=== PATIENT | female | born 1960 | race African-American/Black ===

== ENCOUNTER → 2021-05-10 | Outpatient (CLI) | payer OTHER, BC ==
[2015-05-11 22:10] VITALS: BP 151/81
[~2021-05-10] MED LIST: BACL10TA PO; LEVO50TA5 PO; LEVO5TAB29 PO; MODA100T2 PO; OMEP40CA7 PO; TOPI25TA7 PO; TRAM50TA PO; TRAZ-118 PO; ZOLP10TA4 PO
--- NOTE | 2021-05-16 08:51 | RAD ---
EXAM: Bilateral digital screening mammogram with tomosynthesis. HISTORY: 61-year-old female presents for screening mammography. TECHNIQUE: Full-field digital craniocaudal and mediolateral oblique 2D and 3D tomosynthesis images of both breasts are obtained for evaluation. Computer aided detection was applied. COMPARISON: 05/20/2020 BREAST PARENCHYMAL DENSITY: Level C - Heterogeneously dense. FINDINGS: There is nodularity within the 4:00 position of the right breast at mid to posterior depth centered approximately 6.5 cm from the nipple in the craniocaudal projection. This is more conspicuou s compared to the prior study. There are additional areas of asymmetry and nodularity which are stabl e in appearance. There is no suspicious calcification or architectural distortion. IMPRESSION: BI-RADS Category 0: Incomplete. Additional imaging needed. RECOMMENDATION: Further evaluation with a spot compression craniocaudal view of the right breast and true lateral view the right breast to assess nodularity at the 4:00 position at mid to posterior dept h is recommended. Sonographic imaging can also be performed if deemed indicated based on additional m ammographic findings. If your mammogram demonstrates that you have dense breast tissue, which could hide abnormalities, and if you have other risk factors for breast cancer that have been identified, you might benefit from s upplemental screening tests that may be suggested by your ordering physician. Dense breast tissue, i n and of itself, is a relatively common condition. This information is not provided to cause undue c oncern, but rather to raise your awareness and to promote discussion with your physician regarding th e presence of other risk factors, in addition to dense breast tissue. A report of your mammography re sults will be sent to you and your physician. You should contact your physician if you have any ques tions or concerns regarding this report. Mammography is a sensitive method for finding small breast cancers, but it does not detect them all a nd is not a substitute for careful clinical examination. A negative mammogram does not negate a clin ically suspicious finding and should not result in delay in biopsying a clinically suspicious abnorma lity. PQRS compliance statement - Patient information was entered into a reminder system with a target due date for the next mammogram. "Our facility is accredited by the [employer] Mammography [employer]." Electronically signed by: Rehana May MD (05/16/2021 8:48 AM) [id number]
== END ==
LOC: MAMMO 13:57 → MERGE 14:00
PROVIDERS: ATTEND Nurse Practitioner Family
DX: Z12.31 Encounter for screening mammogram for malignant neoplasm of breast (principal)
CPT/HCPCS: 77063; 77067

== ENCOUNTER → 2021-05-26 | Outpatient (CLI) | payer OTHER, BC ==
[2015-05-11 22:10] VITALS: BP 151/81
--- NOTE | 2021-05-27 10:40 | RAD ---
CLINICAL INDICATION: WHITNEY GARCÍA, who is 61 years of age, presents for further evaluation of a f inding noted on her most recent screening mammographic examination. On that examination an asymmetry was reported within the right medial breast COMPARISON: Prior mammographic imaging 05/10/21, 05/20/2020 02/27/2019 TECHNIQUE: Diagnostic views of the right breast were obtained, utilizing digital technique including spot compre ssion views. BREAST COMPOSITION: There are scattered fibroglandular densities. MAMMOGRAM FINDINGS: On the spot compression view the asymmetry persisted. Therefore ultrasound was performed. ULTRASOUND FINDINGS: Targeted ultrasound of the right breast Medial right breast: Parenchymal tissue of normal echotexture is present. IMPRESSION: 1. Right breast probably benign asymmetry for which follow up is recommended. Six-month mammographic evaluation including full field CC and MLO views as well as spot compression views are recommended. U ltrasound may be necessary based on mammographic findings. RECOMMENDATION: In the absence of new clinical symptoms or change in physical exam, short term follow up diagnostic e xamination is recommended in 6 months to assess for interval stability. BIRADS 3: PROBABLY BENIGN Electronically signed by: Rogelio Ramirez MD (05/27/2021 10:38 AM) [id number]
== END ==
LOC: MAMMO 16:00
PROVIDERS: ATTEND Radiology Radiation Oncology
DX: R92.8 Other abnormal and inconclusive findings on diagnostic imaging of breast (principal)
CPT/HCPCS: 76641; 77065

== ENCOUNTER → 2021-11-22 | Outpatient (CLI) | payer OTHER, BC ==
[2015-05-11 22:10] VITALS: BP 151/81
--- NOTE | 2021-11-22 16:39 | RAD ---
DIAGNOSTIC RIGHT BREAST MAMMOGRAM AND RIGHT BREAST ULTRASOUND Right breast 2-D and 3-D mammogram was performed in routine CC and MLO projections. Additional spot c ompression CC view was provided. INDICATION: Short interval follow-up right breast asymmetry. COMPARISON: 05/26/2021, 05/10/2021, 05/20/2020, 02/27/2019 FINDINGS: Breast Density: There are scattered areas of fibroglandular density. Right breast mammogram redemonstrates an asymmetry noted in the inner right breast mid to posterior t hird, not significantly changed from multiple prior mammogram years. No suspicious calcifications or architectural distortion. Right breast ultrasound is performed without focal abnormality identified. Normal fibroglandular tiss ue is seen. No cyst or mass. IMPRESSION: 1. Stable appearance of right breast asymmetry, seen over multiple prior examinations. ASSESSMENT: BI-RADS 3: Probably Benign. RECOMMENDATION: Recommend 6 month short interval follow-up bilateral mammogram and right breast ultra sound to coincide with normal screening interval, May 2022. The facility will notify the patient of the results via mail. Patient information will be entered int o the mammography reminder system with a target recall date for the next mammogram. A reminder letter will be generated by the facility. Electronically signed by: Richmond Albarran MD (11/22/2021 4:37 PM) [id number]
== END ==
LOC: MAMMO 13:43
PROVIDERS: ATTEND Nurse Practitioner Family
DX: N64.89 Other specified disorders of breast (principal)
CPT/HCPCS: 76641; 77065; G0279; 77061